=== PATIENT | male | born 1990 | race Caucasian/White ===

== ENCOUNTER 2017-12-08 17:36 | Observation (INO) | payer OTHER ==
[2017-12-08] MEDS ORDERED: ONDANSETRON 4 MG/2 ML VIAL ONE ×2 (17:53→21:05)
[2017-12-08] MEDS ORDERED: NS 1,000 ML IV ONE (18:01)
[2017-12-08] MEDS ORDERED: ONDANSETRON 4 MG/2 ML VIAL IVP ONE (18:01)
--- NOTE | 2017-12-08 18:04 | EDPHY ---
General - History Smoking Status: Never smoked Time Seen by Provider: 12/08/17 17:52 Narrative: CHIEF COMPLAINT: Abdominal pain, nausea, sent by Urgent Care HISTORY OF PRESENT ILLNESS: Patient presents with complaints of abdominal pain, nausea. This started abruptly this morning around a.m. While at work. Located in the right lower quadrant of his abdomen. Mild at 1st and steadily worsening throughout the day. Associated with nausea and anorexia. No vomiting. He has felt ill throughout the day. Significant pain with palpation and movement. Does improve at rest. He was evaluated urgent care with physical exam only, and sent to this facility for the possibility of appendicitis per he has no previous abdominal pathology or surgeries. No other associated complaints or modifying factors. NPO of solids since 7:00 a.m.. NPO of liquids since 1 hr ago. REVIEW OF SYSTEMS: Ten systems reviewed and are negative unless otherwise noted in the HPI PCP: Dr. Luis Wang SPECIALISTS: None PAST MEDICAL HISTORY: Anxiety and depression PAST SURGICAL HISTORY: No surgical history SOCIAL HISTORY: Never smoker. No drug or alcohol use. Lives and works here independently. FAMILY HISTORY: Noncontributory EXAMINATION General Appearance: Alert, no distress. Well-developed well-nourished. Head: normocephalic, atraumatic Eyes: Pupils equal and round, no conjunctival pallor or injection ENT, Mouth: Mucous membranes moist Neck: Normal inspection, supple, non-tender Respiratory: Lungs are clear to auscultation Cardiovascular: Regular rate and rhythm Gastrointestinal: Abdomen is soft and nondistended. There is tenderness in the right lower quadrant with positive McBurney. Guarding the right lower quadrant with positive Rovsing. No tympany. No CVA tenderness. Back: non-tender, no bony abnormalities Neurological: A&O, nonfocal, normal gait Skin: Warm and dry, no rash no petechiae, purpura ecchymosis. Extremities: Nontender, no pedal edema Psychiatric: Mood and affect normal DIFFERENTIAL DIAGNOSES: Including but not limited to acute appendicitis, colitis, diverticulitis, enteritis MDM: 6:00 p.m. Nausea, right lower quadrant abdominal pain with history examination that suggest acute appendicitis. Vital signs within normal limits. He is guarding with a positive McBurney sign. I have ordered a point of care creatinine and CT scan abdomen pelvis but he is in no acute distress vital signs stable. 6:[address] scan as reviewed by me reveals acute appendicitis without perforation or abscess. All discussed with general surgeon 6:40 p.m. Case discussed with Dr. Zhou. He will come evaluate the patient emergency department. He request IV Rocephin and IV metronidazole. 6:45 p.m. Case discussed with radiologist Dr. Latham. CT scan confirmed acute appendicitis without perforation or complication. No other acute findings. 6:[address] Zhou in the emergency department to evaluate the patient. He requests admission to his service, observation status, medical-surgical bed. He is admitted in stable condition. SUPERVISION: Patient was independently examined, but I discussed the case with my secondary supervising physician Dr. Cortes (Julio Cesar Weller) - Diagnostics Imaging Results: Imaging Impressions Abdomen CT 12/08/17 18:05 Impression: 1. Acute appendicitis with appendix thickened up to 17 mm. 2. No bowel obstruction or drainable abscess. Findings and recommendations discussed with Emergency Department physician, Julio Cesar Weller PAC at 18:45 hour, 12/08/2017. Final report concurs with initial preliminary interpretation. - Objective Vital Signs: Initial Vital Signs Temperature (C) 37.7 C 12/08/17 17:40 Heart Rate 80 12/08/17 17:40 Respiratory Rate 17 12/08/17 17:40 Blood Pressure 117/82 H 12/08/17 17:40 O2 Sat (%) 98 12/08/17 17:40 O2 Delivery Mode Room Air Allergies/Adverse Reactions: No Known Allergies Allergy (Verified 12/08/17 20:09) Home Medications: Medication Instructions Recorded Sertraline HCl [Zoloft 100mg (*)] 150 mg PO DAILY 12/08/17 Laboratory Results: Laboratory Results 12/08/17 17:59 12/08/17 12/08/17 12/08/17 18:05 17:59 17:59 WBC 17.31 10^3/uL H 10^3/uL (3.80-9.50) RBC 5.56 10^6/uL 10^6/uL (4.40-6.38) Hgb 16.2 g/dL g/dL (13.7-17.5) POC Hgb 17.0 gm/dL gm/dL (13.7-17.5) Hct 46.8 % % (40.0-51.0) POC Hct 50 % % (40-51) MCV 84.2 fL fL (81.5-99.8) MCH 29.1 pg pg (27.9-34.1) MCHC 34.6 g/dL g/dL (32.4-36.7) RDW 12.7 % % (11.5-15.2) Plt Count 283 10^3/uL 10^3/uL (150-400) MPV 10.1 fL fL (8.7-11.7) Neut % (Auto) 88.8 % H % (39.3-74.2) Lymph % (Auto) 4.5 % L % (15.0-45.0) [place] % (Auto) 6.1 % % (4.5-13.0) Eos % (Auto) 0.0 % L % (0.6-7.6) Baso % (Auto) 0.2 % L % (0.3-1.7) Nucleat RBC Rel Count 0.0 % % (0.0-0.2) Absolute Neuts (auto) 15.37 10^3/uL H 10^3/uL (1.70-6.50) Absolute Lymphs (auto) 0.78 10^3/uL L 10^3/uL (1.00-3.00) Absolute Monos (auto) 1.05 10^3/uL H 10^3/uL (0.30-0.80) Absolute Eos (auto) 0.00 10^3/uL L 10^3/uL (0.03-0.40) Absolute Basos (auto) 0.04 10^3/uL 10^3/uL (0.02-0.10) Absolute Nucleated RBC 0.00 10^3/uL 10^3/uL (0-0.01) Immature Gran % 0.4 % % (0.0-1.1) Immature Gran # 0.07 10^3/uL 10^3/uL (0.00-0.10) POC Sodium 141 mEq/L mEq/L (135-145) POC Potassium 3.3 mEq/L mEq/L (3.3-5.0) POC Chloride 106 mEq/L mEq/L (97-110) POC BUN 12 mg/dL mg/dL (7-23) POC Creatinine 0.5 mg/dL L mg/dL (0.7-1.3) POC Glucose 134 mg/dL H mg/dL (70-100) Total Bilirubin 0.9 mg/dL mg/dL (0.1-1.4) Conjugated Bilirubin 0.4 mg/dL mg/dL (0.0-0.5) Unconjugated Bilirubin 0.5 mg/dL mg/dL (0.0-1.1) AST 25 IU/L IU/L (17-59) ALT 35 IU/L IU/L (21-72) Alkaline Phosphatase 103 IU/L IU/L (38-126) Total Protein 8.2 g/dL g/dL (6.3-8.2) Albumin 4.8 g/dL g/dL (3.5-5.0) Lipase 65 IU/L IU/L (23-300) Medications Given: Discontinued Medications Sodium Chloride (Ns) 1,000 mls @ 0 mls/hr IV ONCE ONE PRN Reason: Wide Open Stop: 12/08/17 18:02 Last Admin: 12/08/17 18:03 Dose: 1,000 mls Ceftriaxone Sodium/Dextrose (Rocephin 1 Gm (Premix)) 50 mls @ 100 mls/hr IV EDNOW ONE PRN Reason: Protocol Stop: 12/08/17 19:12 Last Admin: 12/08/17 18:53 Dose: 50 mls Metronidazole/Sodium Chloride (Flagyl 500 Mg (Premix)) 100 mls @ 100 mls/hr IV EDNOW ONE PRN Reason: Protocol Stop: 12/08/17 19:43 Last Admin: 12/08/17 19:23 Dose: 100 mls Morphine Sulfate (Morphine) 6 mg IVP EDNOW ONE Stop: 12/08/17 18:04 Last Admin: 12/08/17 18:16 Dose: 6 mg Ondansetron HCl (Zofran) 4 mg IVP EDNOW ONE Stop: 12/08/17 18:02 Last Admin: 12/08/17 18:02 Dose: 4 mg Point of Care Test Results: Chemistry 12/08/17 18:05 POC Sodium 141 mEq/L mEq/L (135-145) POC Potassium 3.3 mEq/L mEq/L (3.3-5.0) POC Chloride 106 mEq/L mEq/L (97-110) POC BUN 12 mg/dL mg/dL (7-23) POC Creatinine 0.5 mg/dL L mg/dL (0.7-1.3) POC Glucose 134 mg/dL H mg/dL (70-100) ISTAT H&H 12/08/17 18:05 POC Hgb 17.0 gm/dL gm/dL (13.7-17.5) POC Hct 50 % % (40-51) Departure - Departure Disposition: To OP Cath/Surgery Clinical Impression: Acute appendicitis Qualifiers: Acute appendicitis type: with localized peritonitis Qualified Code(s): K35.3 - Acute appendicitis with localized peritonitis Condition: Good
[2017-12-08] MEDS ORDERED: IOPAMIDOL (ISOVUE-300) 100 ML BTL ONE (18:13)
[2017-12-08 18:14] LABS: PLATELET COUNT 283 10^3/uL (150-400)
[2017-12-08] MEDS ORDERED: ceFAZolin 1 GM/5 ML SYR ONE (19:28)
[2017-12-08] MEDS ORDERED: HEPARIN 5,000 UNIT/0.5 ML INJ ONE (19:28)
[2017-12-08] MEDS ORDERED: ONDANSETRON 4 MG/2 ML VIAL IVP PRN ×2 (19:59→21:45)
[2017-12-08] MEDS ORDERED: HYDROmorphONE/DILAUDID 1 MG/ML INJ IVP PRN ×2 (19:59→21:45)
[2017-12-08] MEDS ORDERED: LR 1,000 ML IV SCH (20:00)
--- NOTE | 2017-12-08 20:00 | GHP ---
[f rep st] PREOP HISTORY AND PHYSICAL DATE OF ADMISSION: 12/08/2017 ADMITTING DIAGNOSIS: Acute appendicitis with appendicolith. HISTORY: Manolo Durham is a 27-year-old white male who was in his usual state of good health this morning when he woke up at 7 a.m. and had a piece of pizza. He went to work at 7:45 am. He had a generalized "sour" stomach, complaining of a crampy dull pain. He came home at 9:50, had water, Pepto-Bismol, and neymar. He tried to lie down and go to sleep but could not. He vomited 5-8 times. He had 2 bowel movements at approximately noon and the pain shifted down to the right lower quadrant at noon. He went to Urgent Care at 4:45 and was instructed to come over to [facility]. He has not had recent upper respiratory tract infection. He has had diarrhea in the last 2 weeks, but he usually has diarrhea. There is no history of travel outside the [place] or antibiotics in the last 6 months. There is no history of inflammatory bowel disease. He has had no prior history of similar symptoms or abdominal surgery. SOCIAL HISTORY: He is not a smoker. He drinks approximately 1 drink a week. MEDICATIONS: Include citalopram, he takes 1/2 pills daily basis for anxiety/ depression. He does not take any other medications. PAST SURGICAL HISTORY: Include wisdom tooth extraction and removal of a mole on his leg. These were done without general anesthesia. There is no history of rheumatic fever, tuberculosis, hepatitis, or transfusions. REVIEW OF SYSTEMS: He has bilateral vitreous prolapse and is just being observed at this time. He wears lenses for visual correction and does have an astigmatism. Review of systems is quite negative. Note is made there are no limits on his activities. He did have a steroid dose pack 3 months ago with his wisdom tooth extraction. FAMILY HISTORY: His mother is 43 years old and alive and well. His father is 45 years old and alive and well. There are no bleeding disorders, clotting disorders, difficulty with anesthesia in the patient or his family. Note, he has no other siblings. PHYSICAL EXAMINATION: GENERAL: He is awake and alert. He is seen lying in bed 8 in the ER. VITAL SIGNS: His blood pressure is 132/83, heart rate of 82, respirations are 16. Temperature is 37.8. He is awake, alert, and pleasant. HEAD: His skull is normocephalic and atraumatic. NECK: There is no thyroid enlargement. No bruits are appreciated. LYMPHATIC: There is no cervical, supraclavicular, axillary, or inguinal lymphadenopathy. BACK: Back is unremarkable. LUNGS: Lungs are clear to auscultation. He does take shallow breaths. CARDIAC: Shows S1, S2 to be normal with no split of S2, without murmurs, rubs, or gallops. ABDOMEN: Shows hypoactive bowel sounds. He is tender with cough in the right mid to upper quadrant. He has a negative psoas and obturator sign. To palpation, his left upper quadrant is 1/10, left mid abdomen is 1/10, left lower quadrant is 1/10, epigastrium is 1/10. Periumbilical area is 1/10, suprapubic area is 2/10, right upper quadrant is 2/ 10, right mid abdomen is 4/10, right lower quadrant is 10/10. LABORATORY DATA: His white blood cell count is 17,300 with 89% neutrophils. Hematocrit is 46, platelets are 283. Chemistries are unremarkable and his lipase is 65. His transaminases are normal. Alkaline phosphatase is 103. His glucose is 134, BUN is 12, creatinine is 0.5, potassium is 3.3. His sodium is 141. On his CAT scan he certainly has an appendicolith and a distended appendix with a hyperemic wall. There is very minimal periappendiceal stranding. IMPRESSION: Patient with acute appendicitis. PLAN: I will plan a laparoscopic, possibly open appendectomy. /[id number]/MODL MTDD
[2017-12-08] MEDS ORDERED: fentaNYL 100 MCG/2 ML INJ ONE ×4 (20:15→21:06)
[2017-12-08] MEDS ORDERED: PROPOFOL 200 MG/20 ML VIAL ONE (20:16)
[2017-12-08] MEDS ORDERED: ROCURONIUM 50 MG/5 ML VIAL ONE (20:27)
[2017-12-08] MEDS ORDERED: DEXAMETHASONE 4 MG/ML VIAL ONE (21:05)
[2017-12-08] MEDS ORDERED: oxyCODONE IR 5 MG TAB PO PRN (21:45)
[2017-12-08] MEDS ORDERED: NALOXONE HCL 0.4 MG/ML INJ IVP PRN (21:45)
[2017-12-08] MEDS ORDERED: ALBUTEROL 3 ML DEYVIAL IH PRN (21:45)
[2017-12-08] MEDS ORDERED: fentaNYL 100 MCG/2 ML INJ IVP PRN (21:45)
--- NOTE | 2017-12-08 21:46 | POSTANESTH ---
Post Anesthetic Evaluation Cardiovascular Status: Normal, Stable Respiratory Status: Normal, Stable Level of Consciousness/Mental Status: Can Participate in Eval, Mildly Sleepy, Arousable Pain Control: Adequate, Prn Tx Ordered Nausea/Vomiting Control: Adequate, Prn Tx Ordered Complications Possibly Related to Anesthesia: None Noted
--- NOTE | 2017-12-08 21:47 | PDANEPAE ---
CALLIE History of Present Illness Appy CALLIE Past Medical History - Pulmonary History Hx Oxygen in Use at Home: No Hx Sleep Apnea: No - Endocrine History Hx Diabetes: No ANE Review of Systems Review of Systems: - Exercise capacity Exercise capacity: >=4 METS ANE Patient History - Allergies Allergies/Adverse Reactions: No Known Allergies Allergy (Verified 12/08/17 20:09) - Home Medications Home Medications: Sertraline HCl [Zoloft 100mg (*)] 150 mg PO DAILY 12/08/17 [Last Taken 12/08/17 06:00 50] - NPO status NPO Since - Liquids (Date): 12/08/17 NPO Since - Liquids (Time): 16:00 NPO Since - Solids (Date): 12/08/17 NPO Since - Solids (Time): 06:00 - Smoking Hx Smoking Status: Never smoked CALLIE Labs/Vital Signs - Labs Result Diagrams: 12/08/17 17:59 - Vital Signs Blood Pressure: 119/93 Heart Rate: 83 Respiratory Rate: 18 O2 Sat (%): 95 Height: 177.8 cm Weight: 99.79 kg CALLIE Physical Exam - Airway Neck exam: FROM Mallampati Score: Class 1 - Pulmonary Pulmonary: clear to auscultation - Cardiovascular Cardiovascular: regular rate and rhythym - ASA Status ASA Status: I ANE Anesthesia Plan Anesthesia Plan: general endotracheal anesthesia
[2017-12-08] MEDS ORDERED: HYDROmorphONE/DILAUDID 1 MG/ML INJ ONE (22:00)
[2017-12-08] MEDS ORDERED: KETOROLAC 30 MG/1 ML SDV ONE (22:04)
[2017-12-08] MEDS ORDERED: ACETAMINOPHEN 500 MG TAB ONE (22:04)
[2017-12-08] MEDS: ACETAMINOPHEN 500 MG TAB PO SCH (22:05)
[2017-12-08] MEDS: KETOROLAC 30 MG/1 ML SDV IVP SCH (22:05)
[2017-12-09] MEDS: KETOROLAC 30 MG/1 ML SDV IVP SCH ×2 (04:12→10:27)
[2017-12-09] MEDS: ACETAMINOPHEN 500 MG TAB PO SCH ×2 (05:57→14:15)
--- NOTE | 2017-12-09 08:02 | GOP ---
[f rep st] OPERATIVE REPORT DATE OF OPERATION: 12/08/2017 SURGEON: Brenden Zhou MD PREOPERATIVE DIAGNOSIS: Acute appendicitis with appendicolith. POSTOPERATIVE DIAGNOSIS: Acute appendicitis with appendicolith. PROCEDURE PERFORMED: Laparoscopic appendectomy. FINDINGS: Acute appendicitis with appendicolith. INDICATIONS: Acute appendicitis with appendicolith. DESCRIPTION OF PROCEDURE: The patient was placed on the operating table in supine position. After induction of adequate general endotracheal anesthesia, the abdomen was carefully clipped, prepped, and draped. A surgical time-out was carried out and agreed to by all members of the operative team. A curvilinear incision was planned at the umbilicus, a transverse incision was planned at the suprapubic region, and an oblique incision was planned at the left lower quadrant. All sites were sharply incised. The incisions were deepened with Bovie electrocautery. At the umbilicus, the subcutaneous tissue was carefully dissected using a spreading technique to expose the anterior rectus sheath bilaterally. This was elevated between Allis clamps. The fascia was divided in the midline. A pursestring of #0 PDS was placed. An 11-12 mm Valdez trocar was used. Intra-abdominal insufflation was carried out to 15 mmHg. A 5 mm port was placed through both the left lower quadrant and suprapubic sites. His cecum was located in the right upper quadrant. Because of his habitus, it was a difficult dissection. I was subsequently able to elevate the appendix and divide the mesoappendix with the Harmonic Scalpel to expose the base of the cecum. A 45 mm Endo-DONOVAN stapler was used to transect the appendix with a cuff of cecum. This resulted in excellent hemostasis. The specimen was placed in EndoCatch bag and removed via the umbilical port site. Irrigation with heparin and Ancef-containing irrigant was carried out. The ports were removed under direct vision. An inverted simple suture of #0 PDS was placed at the umbilicus at the midpoint of the midline fascial incision and tied. The pursestring was now tied. Subcutaneous tissues were irrigated and checked for bleeding. None was identified. The skin was closed with inverted simple sutures of #4-0 Vicryl. Mastisol and Steri-Strips were placed. Band-Aids were positioned. The patient tolerated the procedure well and was transferred to recovery in stable and satisfactory condition. SURGEON: Brenden Zhou MD, FACS FLUIDS: 700 cc. /[id number]/MODL MTDD
[2017-12-09 08:48] VITALS: BP 111/70
--- NOTE | 2017-12-09 11:58 | PDDCSUM ---
Discharge Summary Discharge Summary: DISCHARGE SUMMARY Date of Admission December 08 Date of Discharge December 09 DISCHARGE DIAGNOSES -acute appendicitis HOSPITAL COURSE The patient was admitted from the ED and taken to the operating room where they underwent an uneventful laparoscopic appendectomy. They were subsequently taken to the PACU and then the general medical floor. The hospital course was uneventful, their diet was advanced to a regular diet which was well tolerated and their pain was well controlled. They were discharged home in stable condition on the afternoon of the DISCHARGE MEDICATIONS Oral Dilaudid as needed for pain DISPOSITION Home FOLLOW UP Follow up with me in the office in 10-14 days for a general post-operative visit
== END 2017-12-09 12:30 | disposition home or self-care (01) ==
LOC: FOB 22:49
PROVIDERS: ADMIT Surgery; ATTEND Surgery
PROC: 0DTJ4ZZ Resection of Appendix, Percutaneous Endoscopic Approach (ICD-10-PCS; principal; 2017-12-08 19:15)
DX: K35.80 Unspecified acute appendicitis (principal); K38.1 Appendicular concretions
CPT/HCPCS: 44970; 74177; G0378; 82435-PO; 82565-PO; 82947-PO; 84132-PO; 84295-PO; 84520-PO; 85014-PO; 96365; J0696; J1100; J1170; J1644; J1885; J2270; J2405; J2704; J3010; Q9967